=== PATIENT | male | born 1945 | race Caucasian/White ===

== ENCOUNTER → 2019-12-20 13:21 | Outpatient (CLI) | payer MEDICARE, OTHER, SELFPAY ==
--- NOTE | 2019-12-20 13:28 | CT_ITS ---
STUDY: CT SOFT TISSUE NECK WITH CONTRAST REASON FOR EXAM: Male, 74 years old. RT NECK MASS X 1 MONTH, PAINFUL AT TIMES, HX PROSTATE CANCER RADIATION DOSAGE (If Supplied By Facility): CTDIvol = ( 15.19 ) mGy, DLP = ( 497.41 ) mGycm TECHNIQUE: The patient was scanned in a multi-detector CT scanner. High resolution transaxial imaging was performed following intravenous administration of IV 100ML ISOVUE 300. Sagittal and coronal images were reconstructed. Individualized dose optimization techniques were used for this CT. COMPARISON: None. FINDINGS: Normal bilateral parotid glands. Normal bilateral batch weigher spaces. Normal bilateral parapharyngeal spaces. Normal bilateral carotid spaces. Normal bilateral sublingual and submandibular glands and spaces. Normal visualized nasopharynx. Normal retropharyngeal space. Normal perivertebral space. Normal visualized bilateral faucial tonsils. The visualized tongue, tongue base and oropharynx are normal. There are multiple mildly enlarged lymph nodes in the inferior aspect of the right cervical region surrounding the great vessels of the neck. Small benign-appearing submental lymph nodes. There is no abnormal contrast enhancement. Normal epiglottis, bilateral vallecula and hypopharynx. The pre-epiglottic and paraglottic adipose spaces are normal. Normal visualized bilateral piriform sinuses, aryepiglottic folds, vocal cords, and arytenoid-cricoid articulations. Normal subglottic trachea. There is diffuse enlargement of the right lobe of the thyroid with a dominant 3 cm x 3.1 cm x 2.8 cm inhomogeneous soft tissue mass with calcifications within it. Normal visualized pulmonary apices. Normal visualized paranasal sinuses. There is multilevel degenerative changes of the cervical spine. CT/Soft Tissue Neck WITH Contrast IMPRESSION: Diffuse enlargement of the right lobe of the thyroid with a dominant complex cystic mass measuring 3 cm x 3.1 cm x 2.8 cm. Mild enlargement of the lower right cervical lymph nodes. Electronically Signed: Chris Sutton, at 14:10 EDT , Service support ,
[2019-12-20 13:55] LABS: EGFR FINGERSTICK > 60.0000 mL/min (>60)
== END ==
PROVIDERS: PCP Internal Medicine; Referring Provider Otolaryngology; Visit Provider Otolaryngology
DX: R22.1 Localized swelling, mass and lump, neck (principal)
CPT/HCPCS: 70491; Q9967

== ENCOUNTER 2020-05-14 22:58 | Emergency (ER) | payer MEDICARE, OTHER, SELFPAY ==
[2020-05-14 22:59] VITALS: BP 105/59; PULSE 122; RESP 16; TEMP 36.2; O2SAT 90; BMI 30.8
--- NOTE | 2020-05-14 23:16 | ED.VIS.GEN ---
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 Patient states he has been doing radiation to his thyroid disease. He states that yesterday, he was at [facility]. He had biopsy of a lung nodule. He states that today, he began to have fevers. He does describe some shortness of breath and generalized malaise. He thinks he is on oral chemotherapy, and the records reflect that he is on Lenvima, but the patient states they were waiting on final results of his pathology. The patient does have history of coronary vascular disease, hypertension, and hyperlipidemia. He states he had diminished appetite. He does state that he tested negative for Covid 4 days ago. Prior similar symptoms: Yes Recent Illness/Hospitalization: Yes Past Medical History - Allergies and Home Meds Allergies/Adverse Reactions: Allergies No Known Allergies Allergy (Verified 05/14/20 23:00) Primary Care Physician: Bal Conner MD [Primary Care Provider] - Prior records reviewed: Yes Past Medical History: - - Coronary vascular disease, hyperlipidemia, prior prostate cancer, Review of Systems General: Reports: Fever. Denies: Chills, Sweats Eyes: Denies: Visual changes - bilaterally, Diplopia ENT: Denies: Rhinorrhea, Sore throat Cardiovascular: Denies: Chest pain, Palpitations Respiratory: Reports: Dyspnea, Cough. Denies: Dyspnea on exertion Gastrointestinal: Denies: Abdominal pain, Nausea, Vomiting, Diarrhea, Melena, Hematochezia Genitourinary: Denies: Dysuria, Hematuria, Frequency Musculoskeletal: Denies: Back pain, Extremity Pain Skin: Denies: Rash, Wounds Neurological: Denies: Headache, Weakness, Numbness Physical Exam Vital Signs/Narrative: Vital Signs Temp Pulse Resp BP Pulse Ox 05/14/20 22:59 97.2 F L 122 H 16 105/59 L 90 Diagnostic/Tx/Re-eval Clinical Impression(s) from Imaging Studies Chest X-Ray 05/14/20 23:26 IMPRESSION: Bilateral pulmonary nodules concerning for an underlying neoplastic process. Ill-defined opacities within the right mid and lower lung, a nonspecific finding may be secondary to underlying pneumonia and/or edema. Electronically Signed: Sandy Yates MD at 23:43 EDT Tel , Service support , Abnormal Lab Results 05/14/20 05/14/20 23:40 23:40 WBC 55.3 H* RBC 3.39 L Hgb 8.7 L Hct 27.5 L MCV 81.1 MCH 25.7 L MCHC 31.6 L RDW Std Deviation 45.4 H RDW Coeff of Trista 15.5 H Plt Count 572 H MPV 9.1 Immature Gran % (Auto) 4.500 H Neut % (Auto) 90.3 H Lymph % (Auto) 0.6 L [place] % (Auto) 3.8 Eos % (Auto) 0.4 Baso % (Auto) 0.4 Absolute Neuts (auto) 50.0 H Absolute Lymphs (auto) 0.33 L Nucleated RBC % 0 Sodium 134 L Potassium 5.0 Chloride 101 Carbon Dioxide 27.0 Anion Gap 6 BUN 56 H Creatinine 2.51 H Estim Creat Clear Calc 24.51 Est GFR (MDRD) Af Amer 33 L Est GFR (MDRD) Non-Af 27 L BUN/Creatinine Ratio 22.3 H Glucose 214 H Calcium 11.6 H Total Bilirubin 0.30 AST 20 ALT 36 Alkaline Phosphatase 285 H Total Protein 7.6 Albumin 2.3 L Globulin 5.3 H Albumin/Globulin Ratio 0.4 L - Rhythm Strip Rhythm Strip: Sinus Rhythm Rate: 100 Ectopy: None - Medical Decision Making The patient has recent diagnosis of anaplastic thyroid cancer with metastasis. He presents with fever, cough, and hypoxia. He did just have lung biopsy done yesterday at [facility]. Patient was placed on supplemental oxygen was feeling improved. He was mildly tachycardic. Sepsis work-up was pursued. Chest x-ray shows rather diffuse metastatic disease with concern for early infiltrate in his right lower lobe. Covid was also obtained, even though the patient was -4 days ago. Patient was covered with cefepime given history of malignancy. I did obtain noncontrast head CT as he was feeling mildly confused. This was negative. Screening labs do show marked leukocytosis, but this is about where the patient's baseline white blood cell count has been within the past month. He does however have evidence of acute kidney injury and mild lactic acidosis. He is also hypercalcemic. Patient was given fluids and Tylenol. His fever had improved. The patient was requesting transfer to [facility] where he receives all of his care. I do feel that this is reasonable, especially in light that he had his procedure done yesterday. The patient was discussed and accepted by Dr. Good at the [facility]. His Covid was negative. His tachycardia has resolved. He will be transferred. Impression 1. Severe sepsis 2. Right lower lobe pneumonia 3. Acute kidney injury 4. Hypoxia requiring supplemental oxygen 5. Hypercalcemia - Critical Care Time Critical care time (excluding procedures): 30-74 minutes, Discussing w/Patient &/or Family/[employer], Discussing w/Consultants, Arranging Admission or Transfer, Performing Direct Patient Care at Bedside ED Disposition - Plan for ED Patient: Referrals: Bal Conner MD [Primary Care Provider] -
[2020-05-14 23:21] VITALS: BP 111/61; PULSE 107; PULSE 111; RESP 23; RESP 24; TEMP 36.6; O2SAT 84; O2SAT 95
--- NOTE | 2020-05-14 23:26 | RAD_ITS ---
STUDY: X-RAY CHEST REASON FOR EXAM: Male, 75 years old. COUGH; HAD LUNG BIOPSY YESTERDAY; TODAY HAS CHILLS AND FEVER AT HOME. NEGATIVE COVID TEST PRE-PROCEDURE TECHNIQUE: Single frontal view of the chest. COMPARISON: None. FINDINGS: There are nodules scattered throughout the lungs measuring up to 2.4 cm on the left and 1.7 cm on the left. There are ill-defined opacities within the right mid and lower lung as well. Sternal cerclage wires are present from a prior sternotomy. Normal mediastinum and rodriguez. Normal visualized pulmonary arteries. Normal visualized aortic arch and descending thoracic aorta. Normal visualized thoracic spine. Normal visualized ribs, clavicles, and shoulders. There is no demonstrated abnormality of the visualized soft tissue structures of the upper abdomen. RAD/Chest 1 View (Portable) IMPRESSION: Bilateral pulmonary nodules concerning for an underlying neoplastic process. Ill-defined opacities within the right mid and lower lung, a nonspecific finding may be secondary to underlying pneumonia and/or edema. Electronically Signed: Sandy Yates MD at 23:43 EDT Tel , Service support ,
[2020-05-14] MEDS: Acetaminophen 500 MG Tablet 1000 MG PO (23:44)
[2020-05-14] MEDS: 0.9% Normal Saline 1,000 ML 1000 ML IV (23:45)
[2020-05-14 23:59] LABS: Absolute Lymphocyte Count 0.33 X10^3/uL (0.83-4.51); Basophil# 0.22 X10^3/uL; Basophil% 0.4 % (0-1); Eosinophils% 0.4 % (0-5); Hematocrit 27.5 % (40-54); Hemoglobin 8.7 g/dL (13.0-16.5); Lymphocyte # 0.33 X10^3/ul (4.0); Lymphocyte % 0.6 % (19-41); Mean Corp Hgb Conc 31.6 g/dL (32-36); Mean Corpuscular Hgb 25.7 pg (27.0-32.0); Mean Corpuscular Volume 81.1 fL (80-94); Mean Platelet Vol. 9.1 fl (6.2-12.0); Monocyte# 2.11 X10^3/uL; Monocyte% 3.8 % (0-10); NRBC Flagged by Analyzer 0 % (0-5); Neutrophil # 49.97 X10^3/uL (2.7-7.7); Neutrophil % 90.3 % (47-70); POSITIVE COUNT YES; POSITIVE DIFFERENTIAL YES; Platelet Count 572 K/mm3 (150-450); RBC Distribution Width CV 15.5 % (11.6-14.6); RBC Distribution Width SD 45.4 fl (35.1-43.9); Red Blood Count 3.39 M/mm3 (4.6-6.2)
[2020-05-15 00:02] VITALS: BP 123/67; PULSE 104; RESP 28; TEMP 38.4; O2SAT 97
[2020-05-15 00:04] LABS: ALB/GLOB Ratio 0.4 RATIO (0.9-2.4); AST(SGOT) 20 U/L (15-37); Alanine Aminotransfer ALT/SGPT 36 U/L (16-61); Albumin, Serum 2.3 g/dL (3.2-5.0); Alkaline Phosphatase 285 U/L (45-117); Anion Gap 6 (5-15); BUN 56 mg/dL (7-18); BUN/Creat Ratio 22.3 RATIO (10-20); Calcium,Total 11.6 mg/dL (8.5-10.1); Chloride 101 mmol/L (98-107); Creatinine, Serum 2.51 mg/dL (0.70-1.30); EST Glomerular Filtration Rate 27 mL/min (>60); Est Glom Filt Rate - Afr Amer 33 mL/min (>60); Estimated Creatinine Clearance 24.51 ml/min; Globulin 5.3 g/dL (2.2-4.2); Glucose 214 mg/dL (74-106); Protein, Total 7.6 g/dL (6.4-8.2); Sodium Level 134 mmol/L (136-145)
[2020-05-15 00:10] LABS: Differential Indicated SCAN CRITERIA MET; White Blood Count 55.3 K/mm3 (4.4-11.0)
[2020-05-15 00:18] LABS: Lactic Acid 2.3 mmol/L (0.4-1.9)
[2020-05-15 00:44] LABS: Differential Comment SCANNED
[2020-05-15 00:45] LABS: Hypochromasia 2+; Platelet Estimate MOD INC (ADEQ)
[2020-05-15 01:00] VITALS: BP 127/67; PULSE 91; RESP 23; TEMP 37.3; O2SAT 98
[2020-05-15 01:14] LABS: Color, Urine Yellow (Yellow); Glucose, Dipstick Normal (Normal); Ketone-Dipstick Negative (Negative); Leukocyte Esterase-Dipstick Negative /ul (Negative); Mucous, Urine 0 SEEN /hpf (<or=2+); Nitrite-Dipstick Negative (Negative); Occult Blood-Urine 10 /ul (Negative); Protein-Dipstick 100 mg/dl (Negative); Squamous Epithelial Cells - UA 0 SEEN /hpf (0-5); Urine Bilirubin Dipstick Negative (Negative); Urine Clarity Sl. Cloudy (Clear); Urine Urobilinogen Normal (Normal); White Blood Cells 0 SEEN /hpf (0-5)
[2020-05-15 01:33] LABS: Amorphous Sediment 1+; Bacteria 2+ /hpf (None Seen); Red Blood Cells-Urine 0-5 SEEN /hpf (0-5)
[2020-05-15] MEDS: 0.9% Normal Saline 1,000 ML 999 ML IV (01:37)
[2020-05-15 02:12] VITALS: BP 108/52; PULSE 85; RESP 16; TEMP 37.3; O2SAT 97
[2020-05-15 03:15] VITALS: BP 129/69; PULSE 71; PULSE 72; RESP 14; TEMP 37.2; O2SAT 98
[2020-05-15 03:48] LABS: Reflex Lactate? Y
[2020-05-15 04:46] LABS: Lactic Acid 2.1 mmol/L (0.4-1.9)
[2020-05-15 06:03] VITALS: BP 119/69; PULSE 72; RESP 18; TEMP 36.6; O2SAT 95
--- NOTE | 2020-05-15 06:20 | ED.RN ---
PARTIAL DENTURE PLACED IN CUP WITH LID AND PLACED IN PTS SHOES. PT PUT GLASSES BACK ON.
[2020-05-15 06:39] VITALS: BP 119/69; PULSE 72; RESP 16; TEMP 36.6; O2SAT 95
[2020-05-15 12:33] LABS: Pathologist Review Reviewed
--- NOTE | 2020-05-15 23:45 | CT_ITS ---
HISTORY: CONFUSION,CHILLS AND FEVER,PT HAD A LUNG BIOPSY YESTERDAY, PT HAD NEG COVID TEST 4 DAYS AGO HX:HTN,EMPHYSEMA,PROSTATE CANCER,THYROID CANCER WITH METS TOLUNGS,CHEMO AND RADIATION,CABG ADDITIONAL HISTORY: None provided. COMPARISON: None EXAMINATION/TECHNIQUE: CT Head or Brain W/O Contrast Injection. Axial, coronal and sagittal images. Number of images including paperwork: 253. A radiation dose optimization technique was used for this scan. FINDINGS: BRAIN: No acute hemorrhage or mass. No definite acute infarct; MRI more sensitive. White matter hypodensity is nonspecific but most commonly seen with chronic ischemic changes. Generalized atrophy. VENTRICULAR SYSTEM: No hydrocephalus. PARANASAL SINUSES AND MASTOIDS: No air-fluid level in the imaged extent. ORBITS: Unremarkable imaged extent. SKELETON AND SOFT TISSUES: Calvarium intact. ASPECTS score: Not applicable. CT/Brain/Head without Contrast IMPRESSION: No acute intracranial abnormality. Chronic involutional and white matter changes. Individualized dose optimization techniques were used for this CT. at 0037 Reported and signed by: Ying Kenyon MD Electronically Signed: Ying Kenyon MD at 0:37 EDT Tel , Service support ,
--- NOTE | 2020-05-19 19:29 | ED.RN ---
CHART OPENED TO PRINT STICKERS FOR HIM
== END 2020-05-15 06:39 | disposition short-term general hospital (02) ==
LOC: ED 23:09
PROVIDERS: Emergency Provider Emergency Medicine; PCP Internal Medicine
DX: A41.9 Sepsis, unspecified organism (principal); R65.20 Severe sepsis without septic shock; N17.9 Acute kidney failure, unspecified; J18.9 Pneumonia, unspecified organism; C73 Malignant neoplasm of thyroid gland; C79.9 Secondary malignant neoplasm of unspecified site; R09.02 Hypoxemia; E83.52 Hypercalcemia; R41.0 Disorientation, unspecified; I25.10 Atherosclerotic heart disease of native coronary artery without angina pectoris; I10 Essential (primary) hypertension; E78.5 Hyperlipidemia, unspecified; Z79.84 Long term (current) use of oral hypoglycemic drugs; Z79.82 Long term (current) use of aspirin; Z79.899 Other long term (current) drug therapy; Z85.46 Personal history of malignant neoplasm of prostate
CPT/HCPCS: 36415; 70450; 71045; 80053; 81001; 83605; 85025; 87040; 87635; 96361; 96365; 99285; J7030; J7050; U0002